=== PATIENT | female | born 1970 | race Asian ===

== ENCOUNTER 2016-12-05 18:33 | Emergency (ER) | payer OTHER ==
[~2016-12-05 18:33] MED LIST: FLEXERIL 5MG TAB5 MG PO; VOLTAREN75 MG PO
[2016-12-05 18:37] VITALS: BP 147/92
--- NOTE | 2016-12-05 19:02 | ED UPPER/LOWER EXTREMITY COMPL ---
See Addendum History of Present Illness General Chief Complaint: Foot or Ankle Injury Stated Complaint: LT ANKLE PAIN Source: patient, family Exam Limitations: no limitations Vital Signs & Intake/Output Vital Signs & Intake/Output Vital Signs Date Time Temp Pulse Resp B/P Pulse O2 O2 Flow FiO2 Ox Delivery Rate 12/05 1837 98.2 65 20 147/92 98 Room Air ED Intake and Output 12/06 0000 12/05 1200 Intake Total 0 Output Total Balance 0 Intake, Oral 0 Allergies Coded Allergies: NO KNOWN ALLERGIES (12/05/16) Reconcile Medications Cyclobenzaprine (Flexeril 5MG Tab) 5 MG TAB 1 TAB PO Q6P PRN MUSCLE SPASM Diclofenac Sodium (Voltaren) 75 MG ECT 1 TAB PO BID PRN Shoulder pain Triage Note: PT TO TRIAGE WITH LEFT POSTERIOR ANKLE PAIN 8/10 AFTER SLIPPING 3 DAYS PRIOR. SOME SWELLING NOTED Triage Nurses Notes Reviewed? yes HPI: 46-year-old female here with complaints of left posterior lateral ankle pain after an injury that occurred while walking in a parking lot 3 days ago. She felt okay after the injury however the next day she woke up and she had worsening severe pain, throbbing aching, worse with walking and she has been limping. There is no history of injury to the area previously. No treatment thus far. Past History Travel History Traveled to [place] past 21 day No Medical History Any Pertinent Medical History? none Neurological: NONE EENT: NONE Cardiovascular: NONE Respiratory: NONE Gastrointestinal: NONE Hepatic: NONE Renal: NONE Musculoskeletal: NONE Psychiatric: NONE Endocrine: NONE Blood Disorders: NONE Cancer(s): NONE GAS SYSTEMS WORKER/Reproductive: NONE Surgical History Surgical History: non-contributory Psychosocial History What is your primary language [facility] Tobacco Use: Never used ETOH Use: denies use Illicit Drug Use: denies illicit drug use Family History Hx Contributory? No Review of Systems Review of Systems Constitutional: Reports: see HPI. EENTM: Reports: no symptoms. Respiratory: Reports: no symptoms. Cardiovascular: Reports: no symptoms. Gastrointestinal/Abdominal: Reports: no symptoms. Genitourinary: Reports: no symptoms. Musculoskeletal: Reports: see HPI. Skin: Reports: no symptoms. Neurological/Psychological: Reports: no symptoms. Hematologic/Endocrine: Reports: no symptoms. Immunological: Reports: no symptoms. All Other Systems: Reviewed and Negative Physical Exam Physical Exam General Appearance: well developed/nourished Comments: Well-developed well-nourished no apparent distress. HEENT: Atraumatic, extraocular motion intact Neck: Supple, no lymphadenopathy Back: Nontender Respiratory: No respiratory distress Extremities: No edema, full range of motion Neuro: Alert and oriented x3 Psych: Mood affect normal, normal memory normal judgment. Skin: Warm and dry, no rash on exposed skin Left lower leg, Achilles is intact, there is tenderness to the posterior calcaneal region, mostly lateral, mild swelling noted there as well. No distal fibular tenderness. Mild medial calcaneal region tenderness. Full range of motion left ankle. No foot pain or tenderness mid or distal foot. Achilles tendon is intact and is compared bilaterally, negative Rothman test negative Homans test Progress Differential Diagnosis: compartment syndrome, contusion, dislocation, fracture, sprain, tendon injury (achilles rupture) Plan of Care: Orders Procedure Date/time Status Durable Medical Equipment 12/05 1908 Active Diagnostic Imaging: Viewed by Me: Radiology Read. Discussed w/RAD: Radiology Read. Radiology Impression: PATIENT: JA CARDOZO PRESENT AGE: 46 PATIENT ACCOUNT NO: [id number] : 66 LOCATION: [facility] ORDERING PHYSICIAN: BECKI ORTEGA SERVICE DATE: 12/05/16 EXAM TYPE: RAD - XRY-ANKLE 3 OR MORE VIEWS L EXAMINATION: XR ANKLE, LEFT CLINICAL INFORMATION: Left ankle pain following fall. COMPARISON: None. TECHNIQUE: AP, lateral, and mortise views of the left ankle. FINDINGS: No acute fracture or dislocation of the left ankle. Incidental note is made of a small posterior calcaneal heel spur at the site of insertion of the Achilles tendon. The ankle mortise is intact. There is no significant anterior or posterior ankle joint effusion. IMPRESSION: No acute fracture or dislocation of the left ankle. DICTATED BY: REHANA HAMILTON MD DATE/TIME DICTATED:12/05/161926 APPLICATIONS SYSTEM ANALYST:JOHN DATE/TIME TRANSCRIBED:12/05/161926 Comments: Kevin bandage and Aircast applied to the left ankle by myself. Patient tolerated well without complications, neurovascularly intact. Recommend rest ice compression and elevation and orthopedic follow-up in one week. Departure Departure Disposition: HOME OR SELF CARE Condition: Stable Clinical Impression Primary Impression: Left ankle sprain Qualifiers: Encounter type: initial encounter Involved ligament of ankle: calcaneofibular ligament Qualified Code: S93.412A - Sprain of calcaneofibular ligament of left ankle, initial encounter Referrals: TUNG WEST,CHRISTY ARAUJO MD,JEFFERSON Additional Instructions: Rest, ice, compression (kevin wrap), elevation. Motrin and Tylenol as needed for pain. Gradual return to activity as tolerated. Follow-up with orthopedist in one to 2 weeks if no better. Departure Forms: Customer Survey General Discharge Information
--- NOTE | 2016-12-05 19:32 | RADIOLOGY REPORT ---
EXAMINATION: XR ANKLE, LEFT CLINICAL INFORMATION: Left ankle pain following fall. COMPARISON: None. TECHNIQUE: AP, lateral, and mortise views of the left ankle. FINDINGS: No acute fracture or dislocation of the left ankle. Incidental note is made of a small posterior calcaneal heel spur at the site of insertion of the Achilles tendon. The ankle mortise is intact. There is no significant anterior or posterior ankle joint effusion. IMPRESSION: No acute fracture or dislocation of the left ankle.
== END 2016-12-05 19:21 ==
LOC: ERH 18:33
DX: S93.402A Sprain of unspecified ligament of left ankle, initial encounter (principal); W01.0XXA Fall on same level from slipping, tripping and stumbling without subsequent striking against object, initial encounter
CPT/HCPCS: 73610-LT